=== PATIENT | male | born 1975 | race Caucasian/White ===

== ENCOUNTER 2017-07-03 16:40 | Emergency (ER) | payer OTHER ==
[~2017-07-03] VITALS: Ht 188 cm; Wt 102.3 kg
[2017-07-03 16:45] VITALS: BP 155/94; TEMP 98.6
[2017-07-03] MEDS ORDERED: FLEXERIL 1010 MG/TAB PO (17:57)
[2017-07-03 18:06] VITALS: PULSE 64
== END 2017-07-03 18:07 | disposition home or self-care (01) ==
LOC: COL.ER 16:40
DX: S16.1XXA Strain of muscle, fascia and tendon at neck level, initial encounter (principal); S40.012A Contusion of left shoulder, initial encounter; V43.52XA Car driver injured in collision with other type car in traffic accident, initial encounter; Y93.I9 Activity, other involving external motion